=== PATIENT | male | born 1990 | race Caucasian/White ===

== ENCOUNTER 2019-09-23 10:25 | Emergency (ER) | payer BC ==
[~2019-09-23] VITALS: Ht 182.9 cm; Wt 81.6 kg
[2019-09-23 10:24] VITALS: BP 84/38
--- NOTE | 2019-09-23 10:40 | Emergency Room Report ---
History of Present Illness General Chief Complaint: Altered Level of Consciousness Source: EMS (Agusto Almaraz M.D.) Present Illness HPI Disclaimer: Please note that this report is being documented using [employer] technology. This can lead to erroneous entry secondary to incorrect interpretation by the dictating instrument. HPI: This is a approximately 30-year-old male who presented from a marathon race for altered mental status. Apparently patient was found altered under the shade of a tree. Brought in by EMS. In route he was tachycardic, vomiting, and hypotensive. Patient unable to provide history on arrival due to his altered mental status. Patient received 1 L of IV fluids prior to arrival. History is unknown. On further history and arrival to family apparently patient has a history of coronary artery aneurysm diagnosed when patient was about 18 to 20 years old. This was diagnosed at [facility]. They discovered that he probably had Kawasaki's disease as a child that went undiagnosed. Due to the findings of the aneurysm patient was started on Pradaxa and a statin. Patient has had at least 2 cardiac events since this diagnosis. Patient is followed by cardiology in [place] and in [place]. PMH: Coronary artery aneurysm PSH: None Social Hx: No smoking, drinking, drug use (Agusto Almaraz M.D.) Allergies: Coded Allergies: No Known Allergies (Unverified , 09/23/19) Patient History Past Medical History: see triage record (Agusto Almaraz M.D.) Nursing Documentation-PMH Past Medical History Deferred: Pt Cognitively Impaired Past Medical History: No Stated History (Agusto Almaraz M.D.) Review of Systems All Other Systems: limited - Due to altered mental status (Agusto Almaraz M.D.) Physical Exam Vital Signs Date Time Temp Pulse Resp B/P (MAP) Pulse Ox O2 Delivery O2 Flow Rate FiO2 09/23/19 10:16 98.1 140 18 80/40 (53) 99 Room Air Sp02 EP Interpretation: reviewed, normal General Appearance: moderate distress, other - diaphoretic Head: normocephalic, atraumatic Eyes: bilateral eye PERRL, bilateral eye EOMI ENT: hearing grossly normal, moist mucus membranes Neck: full range of motion, supple Respiratory: lungs clear, normal breath sounds, no rhonchi, no respiratory distress, no retraction, no wheezing Cardiovascular #1: other - Patient tachycardic with regular rhythm, appeared diaphoretic, palpable pulses Gastrointestinal: non tender, soft, non-distended, no guarding Neurologic: alert, no focal defects, other - Patient initially alert but not oriented, localize the pain, all 4 extremities Skin: normal color, warm/dry (Agusto Almaraz M.D.) Medical Decision Making ER Course Patient presented altered, hypotensive and tachycardic while running a marathon. On arrival patient started on IV fluid boluses. After IV fluids his vital signs did improve tachycardia resolved hypotension resolved. My differential included dehydration, heat exertion, MIs in the differential. EKG did not have any ischemic changes. Troponin was mildly elevated in the ER. Patient has a history of coronary artery aneurysms. I did consider doing a CT angiogram of the patient however creatinine was 2.3. His baseline is unknown. Lactate was elevated at 5.3 I suspect most likely to dehydration and exertion. My plan is to admit patient to hospital for further observation and IV hydration. He may need a echocardiogram to further evaluate the status of his coronary artery aneurysms. Due to his extensive cardiac history he will require transfer for higher level of care. I was able to speak with cardiology at [facility], Dr. Garcia who will accept patient for transfer. He was planning to arrange an ER to ER transfer. Signed out to oncoming physician to speak with excepting ER doc at [facility]. Patient and family updated at bedside. Laboratory Tests Test 09/23/19 11:00 09/23/19 12:40 White Blood Count 12.3 K/UL (4.8-10.8) H Red Blood Count 5.94 M/UL (4.70-6.10) Hemoglobin 16.9 G/DL (14.2-18.0) Hematocrit 49.2 % (42.0-52.0) Mean Corpuscular Volume 83 FL (80-99) Mean Corpuscular Hemoglobin 28.5 PG (27.0-31.0) Mean Corpuscular Hemoglobin Concent 34.3 G/DL (32.0-36.0) Red Cell Distribution Width 11.8 % (11.6-14.8) Platelet Count 286 K/UL (150-450) Mean Platelet Volume 6.1 FL (6.5-10.1) L Neutrophils (%) (Auto) 63.1 % (45.0-75.0) Lymphocytes (%) (Auto) 29.8 % (20.0-45.0) Monocytes (%) (Auto) 5.4 % (1.0-10.0) Eosinophils (%) (Auto) 0.3 % (0.0-3.0) Basophils (%) (Auto) 1.4 % (0.0-2.0) Prothrombin Time 13.7 SEC (9.30-11.50) H Prothrombin Time INR 1.3 (0.9-1.1) H Activated Partial Thromboplast Time 23 SEC (23-33) Sodium Level 147 MMOL/L (136-145) H Potassium Level 4.4 MMOL/L (3.5-5.1) Chloride Level 108 MMOL/L (98-107) H Carbon Dioxide Level 20 MMOL/L (21-32) L Anion Gap 19 mmol/L (5-15) H Blood Urea Nitrogen 25 mg/dL (7-18) H Creatinine 2.3 MG/DL (0.55-1.30) H Estimate Glomerular Filtration Rate 33.8 mL/min (>60) Glucose Level 99 MG/DL (74-106) Lactic Acid Level 5.20 mmol/L (0.4-2.0) H 2.10 mmol/L (0.66-2.22) Calcium Level 9.6 MG/DL (8.5-10.1) Magnesium Level 1.6 MG/DL (1.8-2.4) L Total Bilirubin 0.5 MG/DL (0.2-1.0) Aspartate Amino Transferase (AST) 36 U/L (15-37) Alanine Aminotransferase (ALT) 35 U/L (12-78) Alkaline Phosphatase 64 U/L (46-116) Total Creatine Kinase 242 U/L (26-308) Creatine Kinase MB 1.7 NG/ML (0.0-3.6) Creatine Kinase MB Relative Index 0.7 Troponin I 0.478 ng/mL (0.000-0.056) Total Protein 8.4 G/DL (6.4-8.2) H Albumin 4.6 G/DL (3.4-5.0) Globulin 3.8 g/dL Albumin/Globulin Ratio 1.2 (1.0-2.7) (Agusto Almaraz M.D.) EKG Diagnostic Results Rate: tachycardiac Rhythm: NSR Other Impression Sinus tachycardia, right ventricular hypertrophy, rate of 133, EKG #2 at 1308 sinus rhythm, rate of 76, right axis deviation, no ischemic changes (Agusto Almaraz M.D.) Last Vital Signs Date Time Temp Pulse Resp B/P (MAP) Pulse Ox O2 Delivery O2 Flow Rate FiO2 09/23/19 10:24 98.1 137 23 84/38 93 Room Air Status: improved (Agusto Almaraz M.D.) Reevaluation Time: 15:44 Reevaluation Impression Assumed care of the patient approximately 1500 hrs. from previous provider Briefly, this a 29-year-old male with history of coronary artery aneurysms possibly from Kawasaki's disease as a child presenting after a syncopal episode and altered mental status while running a marathon today. He arrives dehydrated has an elevated troponin and an elevated lactate which is improving. He will be transferred to [facility] where he has been seen by cardiology in the past. Will be in ED to ED transfer where CCU team will meet the patient in the ED. Patient stable for transport. (Aaron Farah MD) Disposition: [facility] INCLUDE 234 BEDS AT THE [facility] Condition: Serious Agusto Almaraz M.D. Sep 23, 2019 10:40 Aaron Farah MD Sep 23, 2019 15:46
[2019-09-23] MEDS ORDERED: PRADAXA110 MG PO (10:51)
[2019-09-23 11:05] VITALS: BP 105/47
[2019-09-23 11:20] LABS: BASOPHILS % (AUTO) 1.4 % (0.0-2.0); EOSINOPHILS % (AUTO) 0.3 % (0.0-3.0); HEMATOCRIT 49.2 % (42.0-52.0); HEMOGLOBIN 16.9 G/DL (14.2-18.0); LYMPHOCYTES % (AUTO) 29.8 % (20.0-45.0); MEAN CORPUSCULAR VOLUME 83 FL (80-99); MONOCYTES % (AUTO) 5.4 % (1.0-10.0); NEUTROPHILS % (AUTO) 63.1 % (45.0-75.0); PLATELET COUNT 286 K/UL (150-450); RED BLOOD COUNT 5.94 M/UL (4.70-6.10); RED CELL DISTRIBUTION WIDTH 11.8 % (11.6-14.8); WHITE BLOOD COUNT 12.3 K/UL (4.8-10.8)
[2019-09-23] MEDS ORDERED: Omnipaque 350 100ml vial INJ PRN (11:30)
[2019-09-23 11:34] LABS: INR 1.3 (0.9-1.1)
[2019-09-23 11:45] LABS: ANION GAP 19 mmol/L (5-15); BLOOD UREA NITROGEN 25 mg/dL (7-18); CALCIUM 9.6 MG/DL (8.5-10.1); CARBON DIOXIDE 20 MMOL/L (21-32); CHLORIDE 108 MMOL/L (98-107); CREATININE 2.3 MG/DL (0.55-1.30); POTASSIUM 4.4 MMOL/L (3.5-5.1); SODIUM 147 MMOL/L (136-145)
[2019-09-23 11:55] VITALS: BP 111/54
[2019-09-23 12:11] LABS: ALANINE AMINOTRANSFERASE 35 U/L (12-78); ALBUMIN 4.6 G/DL (3.4-5.0); ALBUMIN/GLOBULIN RATIO 1.2 (1.0-2.7); ALKALINE PHOSPHATASE 64 U/L (46-116); ASPARTATE AMINO TRANSFERASE 36 U/L (15-37); BILIRUBIN,TOTAL 0.5 MG/DL (0.2-1.0); CKMB 1.7 NG/ML (0.0-3.6); CREATINE KINASE 242 U/L (26-308)
[2019-09-23 14:30] VITALS: BP 92/46
[2019-09-23] MEDS ORDERED: Aspirin Baby 81mg ORAL ONE (14:45)
[2019-09-23 16:00] VITALS: BP 103/53
[2019-09-23 16:20] VITALS: BP 103/53
--- NOTE | 2019-09-24 13:05 | Diagnostic Imaging Report ---
Indication: Dyspnea Comparison: None A single view chest radiograph was obtained. Findings: Cardiomediastinal appearance is within normal limits for age. The lungs are clear. Pulmonary vascularity is appropriate. The diaphragmatic contour is smooth and costophrenic angles are sharp. No pleural effusions are identified. The bones are unremarkable. Impression: No acute findings
== END 2019-09-23 16:20 | disposition short-term general hospital (02) ==
LOC: EDBD 10:25 → EMR 10:50
DX: R41.82 Altered mental status, unspecified (principal); I95.9 Hypotension, unspecified; R00.0 Tachycardia, unspecified
CPT/HCPCS: 36415; 71045; 80053; 82550; 82553; 83605; 83735; 84484; 85025; 85610; 85730; 86850; 86900; 86901; 87040; 93005; 96361; 96374; 96376; 99285; J2405; J7030